=== PATIENT | female | born 1980 | race Two or more races ===

== ENCOUNTER 2020-04-13 19:20 | Emergency (ER) | payer SELFPAY ==
[~2020-04-13] VITALS: Ht 162.6 cm; Wt 70.0 kg
[2020-04-13 20:14] VITALS: BP 145/98
--- NOTE | 2020-04-13 20:34 | RAD ---
INDICATION: Reason: ANKLE PAIN / Spl. Instructions: / History: COMPARISON: None. IMPRESSION: Left ankle: 3 views obtained. No evidence of ankle malalignment or fracture of the distal tibia, fibula or talus. There is some degenerative changes of the foot. Lucency projecting over the proximal aspect of the third and fourth metatarsals. This is a nondedicated exam therefore limited evaluation but would correlate with point tenderness to ensure that this is not secondary to fractures within the region. If more complete evaluation is desired dedicated foot radiographs could BE obtained. Electronically signed by: Roman Holm MD (04/13/2020 8:31 PM) [id number]
--- NOTE | 2020-04-13 21:37 | RAD ---
Exam: Left foot 3 views INDICATION: Pain TECHNIQUE: Frontal, lateral and oblique views left foot Comparisons: None FINDINGS: There is a mildly displaced fracture involving the base of the second and third and likely fourth metatarsal. Diffuse surrounding soft tissue swelling. Joint spaces are well-maintained. IMPRESSION: Minimally displaced fractures involving the proximal second, third and fourth metatarsals, possibility of Lisfranc injury is not excluded. Electronically signed by: Wai Glover MD (04/13/2020 9:34 PM) [id number]
--- NOTE | 2020-04-13 21:40 | PHYS DOC ---
Past Medical History Past Medical History: No Pertinent History Past Surgical History: No Surgical History Smoking Status: Never Smoker Alcohol Use: None General Adult EDM: Chief Complaint: ANKLE PROBLEM HPI: HPI: 39-year-old female presents for evaluation after injuring her left foot. Patient states she twisted her foot. Patient has pain along the top of her foot along the proximal second third and fourth metatarsals. Toes are neurovascularly intact. She denies any ankle injury or pain. She denies any knee injury or pain. Review of Systems: Review of Systems: Constitutional: Denies fever or chills. [] Eyes: Denies change in visual acuity. [] HENT: Denies nasal congestion or sore throat. [] Respiratory: Denies cough or shortness of breath. [] Cardiovascular: Denies chest pain or edema. [] GI: Denies abdominal pain, nausea, vomiting, bloody stools or diarrhea. [] : Denies dysuria. [] Musculoskeletal: Positive foot pain Integument: Denies rash. [] Neurologic: Denies headache, focal weakness or sensory changes. [] Endocrine: Denies polyuria or polydipsia. [] Lymphatic: Denies swollen glands. [] Psychiatric: Denies depression or anxiety. [] Heart Score: Risk Factors: Risk Factors: DM, Current or recent (<one month) smoker, HTN, HLP, family history of CAD, obesity. Risk Scores: Score 0 - 3: 2.5% MACE over next 6 weeks - Discharge Home Score 4 - 6: 20.3% MACE over next 6 weeks - Admit for Clinical Observation Score 7 - 10: 72.7% MACE over next 6 weeks - Early Invasive Strategies Allergies: Allergies: Allergies Coded Allergies Type Severity Reaction Last Updated Verified No Known Drug Allergies 04/13/20 No Physical Exam: PE: Constitutional: Well developed, well nourished, no acute distress, non-toxic appearance. [] Cardiovascular: Heart rate regular Lungs & Thorax: No respiratory distress Skin: Warm, dry, no erythema, no rash. [] Back: No tenderness, no CVA tenderness. [] Extremities: Decreased range of motion left foot. There is some swelling and ecchymosis along the proximal metatarsals. Toes are neurovascularly intact cap refill less than 2 seconds. No other injuries. Neurologic: Alert and oriented X 3, normal motor function, normal sensory function, no focal deficits noted. [] Psychologic: Affect normal, judgement normal, mood normal. [] Current Patient Data: Vital Signs: Vital Signs Date Time Temp Pulse Resp B/P (MAP) Pulse Ox O2 Delivery O2 Flow Rate FiO2 04/13/20 20:14 97.9 74 18 145/98 (114) 99 Room Air 97.9 EKG: EKG: [] Radiology/Procedures: Radiology/Procedures: [] Impression: IMPRESSION: Minimally displaced fractures involving the proximal second, third and fourth metatarsals, possibility of Lisfranc injury is not excluded. IMPRESSION: Nondisplaced mildly comminuted transverse fractures involving the base of second, third and fourth metatarsals. There is surrounding soft tissue swelling. Difficult to exclude involvement of the Lisfranc ligament. Exposure: One or more of the following in the visualized dose reduction techniques were utilized for this examination: 1. Automated exposure control 2. Adjustment of the MA and/or KV according to patient size 3. Use of iterative of reconstructive technique Course & Med Decision Making: Course & Med Decision Making Pertinent Labs and Imaging studies reviewed. (See chart for details) [] X-ray and CT imaging performed. Discussed with orthopedics Dr. Fuchs. Patient placed in a splint by ER staff. Evaluation post splint toes neurovascul ar intact. Patient pain treated with Toradol and [place]. Patient will be discharged home with instructions to follow-up with Dr. Fuchs.. Ya Disclaimer: Ya Disclaimer: This electronic medical record was generated, in whole or in part, using a voice recognition dictation system. Departure Departure Impression: Primary Impression: Foot pain Additional Impression: Metacarpal bone fracture Disposition: 01 HOME, SELF-CARE Referrals: NO PCP (PCP) Patient Instructions: Metatarsal Fracture, Undisplaced Scripts Hydrocodone/Apap 5-325 (NORCO 5-325 TABLET) 1 Each Tablet 1 TAB PO TID, #20 TAB Prov: LILLY GARCIA DO 04/13/20 Justicifation of Admission Dx: Justifications for Admission: Justification of Admission Dx: N/A LILLY GARCIA DO Apr 13, 2020 21:40
[2020-04-13] MEDS ORDERED: HYDROcodone/APAP 5/325MG 1 TAB TABLET PO ONE (22:00)
[2020-04-13] MEDS ORDERED: KETOROLAC 60 MG/2 ML VIAL. IM ONE (22:00)
--- NOTE | 2020-04-13 23:03 | RAD ---
Exam: CT right foot without contrast INDICATION: Fracture TECHNIQUE: Sequential axial images through the right obtained without IV contrast. Sagittal and coronal reformatted images were reconstructed from the axial data and reviewed. Comparisons: None FINDINGS: Nondisplaced fractures are seen involving the base of the second, third and fourth metatarsal. There is surrounding soft tissue swelling. No other fractures are identified. Bone mineralization is normal. Joint spaces are well-maintained. IMPRESSION: Nondisplaced mildly comminuted transverse fractures involving the base of second, third and fourth metatarsals. There is surrounding soft tissue swelling. Difficult to exclude involvement of the Lisfranc ligament. Exposure: One or more of the following in the visualized dose reduction techniques were utilized for this examination: 1. Automated exposure control 2. Adjustment of the MA and/or KV according to patient size 3. Use of iterative of reconstructive technique Electronically signed by: Wai Glover MD (04/13/2020 11:00 PM) [id number]
[2020-04-13] MEDS ORDERED: LIDOCAINE 1% Multi-Dose 20 ML VIAL. ONE (23:14)
[2020-04-13] MEDS ORDERED: HYDR-3164 PO (23:15)
== END 2020-04-13 23:36 | disposition home or self-care (01) ==
LOC: ER 19:20
DX: S92.322A Displaced fracture of second metatarsal bone, left foot, initial encounter for closed fracture (principal); S92.332A Displaced fracture of third metatarsal bone, left foot, initial encounter for closed fracture; S92.342A Displaced fracture of fourth metatarsal bone, left foot, initial encounter for closed fracture; M79.671 Pain in right foot; X50.9XXA Other and unspecified overexertion or strenuous movements or postures, initial encounter; Y93.89 Activity, other specified; Y92.89 Other specified places as the place of occurrence of the external cause; Y99.8 Other external cause status
CPT/HCPCS: 29515; 73610; 73630; 73700; 96372; 99284; J1885